=== PATIENT | female | born 1950 | race Caucasian/White ===

== ENCOUNTER 2021-11-14 01:13 | Day surgery (SDC) | payer MEDICARE, SELFPAY ==
[2021-10-29 13:40] VITALS: BMI 36.6
--- NOTE | 2021-11-13 13:58 | PM.HPGS ---
History of Present Illness History of Present Illness Consent: Risks, benefits, and alternatives have been discussed and questions answered. Patient agrees to proceed with procedure. Chief complaint: hx of colon polyps Narrative: Gretchen Matthew is a 71 year old female Referred for colon cancer screening. She had a polyp removed about 5 years ago. Review of Systems Review of Systems: All systems reviewed & are unremarkable except as noted in HPI and below PMFSH Social History Social History Smoking status: Never smoker Alcohol intake: current Alcohol use details: occasionally Living arrangements: with family Spiritual care concerns: No Meds Home Medications and Allergies Home Medications Medication Instructions Recorded Confirmed Type bisoprolol-hydrochlorothiazide 2 tablet PO DAILY 10/29/21 11/14/21 History pravastatin 40 mg PO DAILY 10/29/21 11/14/21 History Allergies Allergy/AdvReac Type Severity Reaction Status Date / Time No Known Allergies Allergy Verified 11/14/21 08:10 Exam Resp: Auscultation: clear to auscultation bilaterally Cardio: Rate: regular rate Rhythm: regular rhythm GI: GI Palp: Yes Soft to palpation and No Tenderness to palpation present (GI) Assessment and Plan Assessment and plan (1) Colon cancer screening: Code(s): Z12.11 - Encounter for screening for malignant neoplasm of colon Status: Acute Assessment and Plan: Colonoscopy with possible biopsy or polypectomy or cautery or injection of substances.
[2021-11-14 08:12] VITALS: BP 143/87; PULSE 69; RESP 18; TEMP 36.4; O2SAT 98
[2021-11-14] MEDS: LACTATED RINGERS 1,000 ML 150 ML IV CONT (08:21)
--- NOTE | 2021-11-14 08:48 | WPDANESEPPF ---
Anes - Initial Pre Proc Eval Procedure: Operation Date: 11/14/21 09:00 Proposed Procedures p Screening Colonoscopy - Juan Henry MD Date/Time: 11/14/21 08:48 Surgeon: Juan Henry MD Pre Op Diagnosis: hx of colon polyps Patient Data Age: 71 Gender: F Height: 1.57 m Weight: 94.8 kg Last Vital Signs Temp 36.4 C 11/14/21 08:12 Pulse 69 11/14/21 08:12 Resp 18 11/14/21 08:12 BP 143/87 H 11/14/21 08:12 Pulse Ox 98 11/14/21 08:12 Allergies Allergy/AdvReac Type Severity Reaction Status Date / Time No Known Allergies Allergy Verified 11/14/21 08:10 Home Medications Medication Instructions Recorded Confirmed Type bisoprolol-hydrochlorothiazide 2 tablet PO DAILY 10/29/21 11/14/21 History pravastatin 40 mg PO DAILY 10/29/21 11/14/21 History Patient hx anesthesia problems: none Family hx anesthesia problems: none Results Review: All pre-operative results and documents have been reviewed as part of the pre-operative evaluation. [facility] Past Medical History Medical History Hyperlipidemia Hypertension Social History Social History Smoking status: Never smoker Alcohol intake: current Alcohol use details: occasionally Living arrangements: with family Spiritual care concerns: No Anes - Eval Final PreProcedure Day of Procedure 11/14/21 08:48 Patient weight: obese Heart: regular rate and rhythm Lungs: clear to auscultation Airway: Mallampati scale class II Neurological: alert and oriented Last oral intake: >/= 8 hours ASA classification: II Emergent: no Anesthetic plan: proceed Anesthesia type and monitoring: general GIVS and standard monitoring Results Review: All pre-operative results and documents have been reviewed as part of the pre-operative evaluation. Informed Consent: The patient's anesthetic plan and its attendant risks and benefits were discussed with the patient/family/POA. Questions were solicited and answers provided to the satisfaction of the patient/family/POA.
[2021-11-14 09:12] VITALS: BP 125/65; PULSE 68; RESP 19; O2SAT 95
[2021-11-14 09:22] VITALS: BP 125/77; PULSE 67; RESP 19; O2SAT 98
[2021-11-14 09:32] VITALS: BP 128/73; PULSE 64; RESP 20; O2SAT 97
== END 2021-11-14 09:55 | disposition home or self-care (01) ==
PROVIDERS: PCP Registered Nurse; Visit Provider Internal Medicine Gastroenterology
PROC: 0DJD8ZZ Inspection of Lower Intestinal Tract, Via Natural or Artificial Opening Endoscopic (ICD-10-PCS; CPT 45378; principal; 2021-11-14 09:00)
DX: Z12.11 Encounter for screening for malignant neoplasm of colon (principal); K64.8 Other hemorrhoids; Z86.010 Personal history of colon polyps
CPT/HCPCS: G0105; J2704; J7120